=== PATIENT | female | born 1965 | race Caucasian/White ===

== ENCOUNTER → 2023-10-25 | Outpatient (CLI) | payer BC ==
[2023-10-25 21:46] LABS: Alternaria alternata IgE <0.10 kU/L; Aspergillus fumagatus IgE <0.10 kU/L; Birch IgE <0.10 kU/L; Cat Epith & Dander IgE <0.10 kU/L; Cladosporian herbarum IgE 0.22 kU/L; Cockroach IgE <0.10 kU/L; Dermato. farinae IgE <0.10 kU/L; Dog Dander IgE <0.10 kU/L; Elm IgE <0.10 kU/L; Maple (Box Elder) IgE <0.10 kU/L; Oak IgE <0.10 kU/L; Ragweed,Common IgE <0.10 kU/L; Red Top (Bentgrass) IgE <0.10 kU/L
== END | disposition home or self-care (01) ==
LOC: LABWHC1 13:51
PROVIDERS: ATTEND Internal Medicine Critical Care Medicine
DX: J30.9 Allergic rhinitis, unspecified (principal)
CPT/HCPCS: 36415; 82785; 86003

== ENCOUNTER → 2023-10-25 | Outpatient (CLI) | payer BC | LOC: MERGE 13:00 → 3 N SLEEP 13:11 | PROVIDERS: ATTEND Internal Medicine Critical Care Medicine | DX: R06.83 Snoring (principal) ==

== ENCOUNTER → 2023-11-01 | Outpatient (CLI) | payer BC ==
--- NOTE | 2023-11-11 22:08 | P.PCN ---
Date of Procedure: 11/01/23 Operative Findings: Home sleep study Date of services 11/01/2023 Pertinent history This is a 58-year-old female patient who presented to me due to concerns of obstructive sleep apnea. The patient has history of snoring, no witnessed apneas, she has limited fatigue and sleepiness with a Windsor score of 10. She had some weight gain over the years and she does not have any major comorbidities. She has posterior oropharyngeal crowding with a Mallampati class IV. Home sleep study was ordered to decide if there is any underlying obstructive sleep apnea whether further treatment is needed. The patient has been wearing a bite block as the patient has chronic grinding. Her previous medical history includes hyperlipidemia and sarcoidosis Pertinent physical findings The patient's height is 5 feet and 3 inches, weight is 180 pounds and the patient has a BMI of 31.9 Technical description The [employer] apnea link system was used to complete his home sleep study. This is a type III of sleep study. The total recording duration was 8 hours and 30 minutes. The study was started at 1:36 AM and ended at 10:06 AM. This was an adequate study as the patient had a total of 8 hours and 15 minutes of flow monitoring and 8 hours and 50 minutes of oxygen saturation monitoring Results The respiratory analysis showed a total of 0 obstructive apneas and 42 obstructive hypopneas. Resulting apnea-hypopnea index was 5.1 Oxygenation analysis There was no significant nocturnal oxygen desaturation. Total number of oxygen saturations were 34. The average pulse ox during sleep was 92% and average pulse ox while awake was 97%. 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 Do not see the need for CPAP therapy at this point in time as the patient has minimal disease and her AHI is only at 5.1 without any significant desaturations. I am going to encourage this patient to lose weight, sleep on her side and keep the head of the bed elevated at around 20 degrees and at the same time maintain good sleep hygiene measures and regular sleep schedule. Suggested reevaluation should there be any worsening in her condition in the future. For the time being, recommend conservative management. Continue wearing a bite guard regarding her symptoms of grinding.
== END ==
LOC: 3 N SLEEP 11:00
PROVIDERS: ATTEND Internal Medicine Critical Care Medicine
DX: G47.33 Obstructive sleep apnea (adult) (pediatric) (principal); G47.10 Hypersomnia, unspecified; E66.9 Obesity, unspecified; G47.63 Sleep related bruxism; E78.5 Hyperlipidemia, unspecified; Z87.09 Personal history of other diseases of the respiratory system; Z68.31 Body mass index [BMI] 31.0-31.9, adult